=== PATIENT | male | born 2005 | race Caucasian/White ===

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

== ENCOUNTER 2025-02-15 11:14 | Emergency (ER) | payer OTHER ==
[~2025-02-15] VITALS: Ht 177.8 cm; Wt 53.4 kg
[2025-02-15 11:16] VITALS: BP 126/83; PULSE 77; TEMP 98.4; O2SAT 100
--- NOTE | 2025-02-15 11:35 | Physician Documentation ---
History of Present Illness ~ Chief Complaint: Rib pain Stated Complaint: RIB PAIN Time Seen by MD: 11:26 Source: patient Mode of Arrival: POV Exam Limitations: no limitations HPI 19-year-old male with left-sided rib chest pain after falling when embracing his girlfriend and the girlfriend's landed on his chest. Patient waited a few days to see if the pain would resolve but has not. Patient was evaluated at [facility] where he received a binder which has helped with some of the pain but it is encouraged to come into the emergency room for x-rays to evaluate further for any fractures. Tetanus within 5 Years?: Yes Allergies: Coded Allergies: No Known Allergies (Unverified , 02/15/25) Active Prescriptions See Medication Reconciliation Form. Past Medical History Past Medical History: No Pertinent History Past Surgical History: no surgical history Alcohol Use: None Drug Use: none Lives with: Other Occupation: child Review of Systems All Other Systems at this time: Reviewed and Negative Musculoskeletal: Reports: see HPI Physical Exam Vital Signs: RN Vital Signs have been reviewed: Yes, Temperature: 98.4, Source: Temporal, Heart Rate: 77, Respiratory Rate: 15, BP: 126/83, Pulse Oximetry: 100, Weight: 53.350 Physical Exam General: Alert, no apparent distress. HEENT: PERRL, EOMI, no injection, moist mucous membranes. Neck: Full range of motion. Respiratory: Lungs clear, no respiratory distress. Chest: No accessory muscle use. Tenderness to deep breathe and palpate left upper anterior chest Cardiovascular: Regular rate and rhythm, no murmurs. Neurologic: Oriented x4. Psychiatric: Normal mood and affect. Skin: Normal color, warm and dry. No edema, no ecchymosis. Progress Results/Orders Results/Orders Orders - RENEE FOWLER PHOTOGRAPHER HELPER Ribs,Bilat 3vw Min (02/15/25 11:20) Completed Orders - RENEE FOWLER PHOTOGRAPHER HELPER Ribs,Bilat 3vw Min (02/15/25 11:20) Vital Signs 02/15/25 11:16 Temp 98.4 Pulse 77 Resp 15 B/P (MAP) 126/83 Pulse Ox 100 EKG/XRAY/CT/US/VASC/MRI Chest X-Ray : Additional Comments [facility] EXAMINATION: DI RIBS,BILAT 3VW MIN INDICATION: rib pain COMPARISON: None TECHNIQUE: Frontal view of the chest and 3 views of the right ribs history FINDINGS: No focal consolidation, pleural effusion or significant pneumothorax. Normal cardiomediastinal silhouette. No displaced right rib fracture. IMPRESSION: No acute cardiopulmonary disease. No displaced right rib fracture. Medical Decision Making Findings X-ray to evaluate for rib fractures included flail chest, rib contusions. Was negative for any acute abnormalities likely rib contusions medications prescribed to follow up with primary care Differential Dx:Considerations: Include: Chest wall contusion, Flail chest, Pneumothorax, Pulmonary contusion, Rib fracture Departure Time of Disposition: 11:51 Impression: Primary Impression: Rib pain Additional Impression: Contusion Condition: Stable Discharge Instructions: Rib Contusion Additional Instructions: The x-ray was negative for any fractures this is likely a rib contusion. Take Tylenol and ibuprofen as needed for rib pain and follow up with primary care this can take up to a month to feel normal. Feel free to return for any new or worsening symptoms. Referrals: NO PRIMARY CARE PROVIDER (PCP) Prescriptions Lidocaine (Lidoderm) 5 % Adh..patch 1 PATCH TOP DAILY for 30 Days, #30 PATCH 0 Refills may wear up to 12 hours Prov: RENEE FOWLER NP 02/15/25 Ibuprofen (Ibu) 800 Mg Tablet 1 TAB PO Q8H for 7 Days, #21 TAB 0 Refills Prov: RENEE FOWLER NP 02/15/25 Education Educated: Patient Educated regarding: diagnosis, treatment, need for follow up Signature Scribe Signature: no Scribe Attestation: The note accurately reflects work and decisions made by me.Renee CORTEZ 02/15/25 11:34 RENEE FOWLER NP Feb 15, 2025 11:34
--- NOTE | 2025-02-15 11:45 | RADIOLOGY REPORT ---
HEALTH SYSTEM EXAMINATION: DI RIBS,BILAT 3VW MIN INDICATION: rib pain COMPARISON: None TECHNIQUE: Frontal view of the chest and 3 views of the right ribs history FINDINGS: No focal consolidation, pleural effusion or significant pneumothorax. Normal cardiomediastinal silhou ette. No displaced right rib fracture. IMPRESSION: No acute cardiopulmonary disease. No displaced right rib fracture.
[2025-02-15] MEDS ORDERED: LIDO-52 TOP (11:55)
[2025-02-15] MEDS ORDERED: IBUP-864 PO (11:55)
[2025-02-15] MEDS: ketorolac trometh 15mg/ml vial 15 MG/ML ML IM ONE (11:58)
[2025-02-15] MEDS ORDERED: ketorolac trometh 30MG/ML vial 30 MG/ML VIAL IM ONE (12:00)
[2025-02-15 12:06] VITALS: RESP 17
[2025-02-15] MEDS: ketorolac trometh 30MG/ML vial 30 MG/ML VIAL IM ONE (12:06)
== END 2025-02-15 12:10 | disposition home or self-care (01) ==
LOC: ER 11:15
DX: S20.212A Contusion of left front wall of thorax, initial encounter (principal); R07.89 Other chest pain; W18.39XA Other fall on same level, initial encounter; Y93.89 Activity, other specified; Y92.89 Other specified places as the place of occurrence of the external cause; Y99.8 Other external cause status
CPT/HCPCS: 71110; 96372; 99284; J1885